=== PATIENT | male | born 1985 | race American Indian/Alaskan Native ===

== ENCOUNTER 2017-02-01 00:15 | Emergency (ER) | payer SELFPAY ==
[~2017-02-01] VITALS: Ht 170.2 cm; Wt 63.3 kg
[2017-02-01 01:10] LABS: EOSINOPHIL (%) 0.9 % (0-5); EOSINOPHIL COUNT 0.1 K/uL (0-0.3); HEMATOCRIT 49.8 % (38.0-50.0); IMMATURE GRANULOCYTE (%) 0.6 % (0.0-0.7); IMMATURE GRANULOCYTE COUNT 0.1 K/uL; INSTRUMENT ABS NEUTROPHIL CT 10.4 K/uL; LYMPHOCYTE COUNT 0.5 K/uL (1.0-2.8); MCH 29.6 PG (29.0-34.0); MCHC 35.3 G/DL (30.0-36.0); MCV 83.7 FL (86-99); MEAN PLAT.VOLUME 9.7 uM^3 (9.0-12.4); MONOCYTE (%) 5.2 % (3-12); MONOCYTE COUNT 0.6 K/uL (0-0.8); NEUTROPHIL (%) 88.5 % (45-76); NEUTROPHIL COUNT 10.4 K/uL (1.8-6.4); PLATELET COUNT 208 K/uL (156-360); RBC DIS.WIDTH-CV 11.8 % (11.8-14.6); RBC DIS.WIDTH-SD 35.8 % (39-53); RED BLOOD COUNT 5.95 M/uL (4.00-5.50); WHITE BLOOD COUNT 11.8 K/uL (4.1-10.2)
[2017-02-01 01:19] LABS: INTER. NORMALIZED RATIO 1.1; PROTHROMBIN TIME 11.7 SEC (10.2-12.9)
[2017-02-01 01:23] LABS: CHLORIDE 104 mEq/L (99-109); SODIUM 140 mEq/L (136-147)
[2017-02-01 01:25] LABS: GLUCOSE 139 mg/dL (70-99)
[2017-02-01 01:27] LABS: ANION GAP 12 MEQ/L (2-14); TOTAL BILIRUBIN 1.1 mg/dL (0.0-1.0)
[2017-02-01 01:29] LABS: ALKALINE PHOSPHATASE 91 IU/L (3-129); GFR ESTIMATE (CALCULATED) > 59 mL/min/
[2017-02-01 01:30] LABS: UREA NITROGEN (BUN) 14 mg/dL (9-23)
[2017-02-01 01:31] LABS: DIRECT BILIRUBIN 0.4 mg/dL (0.0-0.3)
[2017-02-01] MEDS ORDERED: ZOFRAN ODT4 MG PO (02:33)
[2017-02-01 03:42] VITALS: BP 99/61
== END 2017-02-01 03:51 | disposition home or self-care (01) ==
LOC: EME 00:15
PROVIDERS: Emergency Medicine
DX: K52.9 Noninfective gastroenteritis and colitis, unspecified (principal); Y93.89 Activity, other specified
CPT/HCPCS: 74177; 80048; 80076; 81003; 85025; 85610; 85730; 86900; 86901; 99281; 99285; J1100; J1200; J2765; J7040; S0028